=== PATIENT | male | born 1990 | race American Indian/Alaskan Native ===

== ENCOUNTER 2017-02-06 17:19 | Emergency (ER) | payer SELFPAY ==
[2017-02-06 17:25] VITALS: BP 148/95; PULSE 74; RESP 18; TEMP 98.5; O2SAT 99
--- NOTE | 2017-02-06 17:40 | ED PDOC ---
HPI: General Adult Time Seen by Provider: 02/06/17 17:26 Chief Complaint (Nursing): Medical Clearance Past Medical History Vital Signs: Last Vital Signs Temp 98.5 F 02/06/17 17:21 Pulse 74 02/06/17 17:21 Resp 18 02/06/17 17:21 BP 148/95 H 02/06/17 17:21 Pulse Ox 99 02/06/17 17:31 - Home Medications Home Medications: Ambulatory Orders Medication Instructions Recorded Benzoyl Peroxide [Acne Cream] 28 gm TP BID #1 cream..g. 05/02/16 Clindamycin [Cleocin] 300 mg PO TID #21 cap 05/02/16 Ibuprofen [Motrin] 600 mg PO Q6 PRN #15 tab 05/02/16 - Allergies Allergies/Adverse Reactions: Allergies Allergy/AdvReac Type Severity Reaction Status Date / Time No Known Allergies Allergy Verified 02/06/17 17:21 - ECG O2 Sat by Pulse Oximetry: 99 (RA) Pulse Ox Interpretation: Normal Disposition - Clinical Impression Clinical Impression: PCP (phencyclidine) abuse - Patient ED Disposition Is Patient to be Admitted: No Counseled Patient/Family Regarding: Diagnosis, Need For Followup - Disposition Referrals: [facility] [Outside] Disposition: Routine/Home Disposition Time: 17:30 Condition: GOOD Additional Instructions: Please stop using PCP. Pt is medically and psychiatrically stable for incarceration.
== END 2017-02-06 17:33 ==
LOC: H.ER 17:19
DX: F16.10 Hallucinogen abuse, uncomplicated (principal); Z02.89 Encounter for other administrative examinations

== ENCOUNTER 2017-11-07 19:00 | Emergency (ER) | payer SELFPAY ==
[2017-11-07 19:15] VITALS: BP 140/93; PULSE 93; RESP 20; TEMP 98; O2SAT 100
== END 2017-11-07 19:25 | disposition left against medical advice (07) ==
LOC: H.ER 19:00
DX: Z02.89 Encounter for other administrative examinations (principal)

== ENCOUNTER 2017-12-02 14:06 | Emergency (ER) | payer SELFPAY ==
[2017-12-02] MEDS ORDERED: Sodium Chloride 0.9% 1,000 ML IV STA (14:29)
--- NOTE | 2017-12-02 14:40 | ED PDOC ---
HPI: General Adult Time Seen by Provider: 12/02/17 14:22 Chief Complaint (Nursing): Substance Abuse Chief Complaint (Provider): Drug abuse History Per: Patient History/Exam Limitations: clinical condition Onset/Duration Of Symptoms: Days (today) Additional Complaint(s): Pt. found on the ground responding to pain so brought to the ED. Family at bedside and admit to pcp use hx by pt. Pt. with limited response to questions. Past Medical History Reviewed: Historical Data, Nursing Documentation, Vital Signs - Medical History PMH: No Chronic Diseases - Surgical History Surgical History: No Surg Hx - Family History Family History: States: Unknown Family Hx - Living Arrangements Living Arrangements: With Family - Social History Drugs: Methamphetamine - Home Medications Home Medications: Ambulatory Orders Medication Instructions Recorded Benzoyl Peroxide [Acne Cream] 28 gm TP BID #1 cream..g. 05/02/16 Clindamycin [Cleocin] 300 mg PO TID #21 cap 05/02/16 Ibuprofen [Motrin] 600 mg PO Q6 PRN #15 tab 05/02/16 - Allergies Allergies/Adverse Reactions: Allergies Allergy/AdvReac Type Severity Reaction Status Date / Time No Known Allergies Allergy Verified 02/06/17 17:21 Review of Systems Review Of Systems: ROS cannot be obtained secondary to pt's inabilty to answer questions. Physical Exam - Reviewed Nursing Documentation Reviewed: Yes Vital Signs Reviewed: Yes - Physical Exam Appears: Positive for: Non-toxic, No Acute Distress Head Exam: Positive for: ATRAUMATIC, NORMAL INSPECTION, NORMOCEPHALIC Skin: Positive for: Normal Color, Warm, DRY Eye Exam: Positive for: Normal appearance, PERRL ENT: Positive for: Normal ENT Inspection Neck: Positive for: Normal, Painless ROM, Supple Cardiovascular/Chest: Positive for: Regular Rate, Rhythm Respiratory: Positive for: CNT, Normal Breath Sounds Gastrointestinal/Abdominal: Positive for: Normal Exam, Bowel Sounds, Soft. Negative for: Tenderness Back: Positive for: Normal Inspection. Negative for: L CVA Tenderness, R CVA Tenderness Extremity: Positive for: Normal ROM (moving extremities on his own will). Negative for: Tenderness, Pedal Edema Neurologic/Psych: Positive for: Alert, Other (limited as pt. is not response to all commands, but moves around on his own will). Negative for: Oriented - Laboratory Results Result Diagrams: 12/02/17 15:10 12/02/17 15:10 Interpretation Of Abn Labs: pcp pos - Progress ED Course And Treament: 1752: Stable. AAOx3. Tolerated po. Ambulated with no issues. Girlfriend at bedside and will take responsibility. Fu with pcp. Disposition - Clinical Impression Clinical Impression: PCP (phencyclidine) abuse - Patient ED Disposition Is Patient to be Admitted: No Counseled Patient/Family Regarding: Studies Performed, Diagnosis, Need For Followup - Disposition Referrals: [facility] [Outside] - 12/05/17 Disposition: Routine/Home Disposition Time: 17:54 Condition: STABLE Additional Instructions: Return if not better in 3 days. Instructions: Drug Abuse Treatment
[2017-12-02 15:13] LABS: BASO % 0.8 % (0.0-2.0); EOS % 0.4 % (0.0-4.0); HEMOGLOBIN 12.8 g/dL (12.0-18.0); LYMPH # 1.4 K/uL (1.0-4.3); LYMPH % 31.1 % (20.0-40.0); MEAN CELL VOLUME 90.9 fl (80.0-94.0); MEAN CORPUSCULAR HEMOGLOBIN 30.2 pg (27.0-31.0); MEAN CORPUSCULAR HGB CONC 33.2 g/dL (33.0-37.0); MEAN PLATELET VOLUME 8.2 fl (7.2-11.7); MONO # 0.5 K/uL (0.0-0.8); MONO % 11.3 % (0.0-10.0); NEUT # 2.5 K/uL (1.8-7.0); NEUT % 56.4 % (50.0-75.0); NRBC % 0.1 % (0.0-0.0); RBC 4.24 Mil/uL (4.40-5.90); RED CELL DISTRIBUTION WIDTH 13.5 % (11.5-14.5); WHITE BLOOD COUNT 4.4 K/uL (4.8-10.8)
[2017-12-02 15:30] LABS: ALB/GLOB RATIO 1.2 (1.0-2.1); ALBUMIN 4.5 g/dL (3.5-5.0); ALT/SGPT 38 U/L (21-72); AST/SGOT 35 U/L (17-59); BLOOD UREA NITROGEN 17 mg/dl (9-20); CALCIUM 9.5 mg/dL (8.4-10.2); GFR AFRICAN-AMERICAN > 60; GFR NON-AFRICAN AMERICAN > 60
[2017-12-02 17:09] LABS: BARBITURATES, UR NEGATIVE (NEGATIVE); BENZODIAZEPINES, UR NEGATIVE (NEGATIVE); OPIATES, UR NEGATIVE (NEGATIVE); PHENCYCLIDINE, UR POSITIVE (NEGATIVE)
[2017-12-02 18:05] VITALS: BP 128/78; PULSE 77; RESP 18; TEMP 98; O2SAT 99
== END 2017-12-02 19:14 | disposition home or self-care (01) ==
LOC: H.ER 14:06
DX: F16.10 Hallucinogen abuse, uncomplicated (principal)
CPT/HCPCS: 80053; 85025; 99283; G0480; J7040

== ENCOUNTER 2018-06-27 17:15 | Emergency (ER) | payer SELFPAY ==
[2018-06-27 17:20] VITALS: TEMP 98
--- NOTE | 2018-06-27 18:17 | ED PDOC ---
HPI: Psych/Substance Abuse Time Seen by Provider: 06/27/18 17:25 Chief Complaint (Nursing): Substance Abuse Chief Complaint (Provider): Substance Abuse ED Caveat: Intoxicated History/Exam Limitations: intoxication Onset/Duration Of Symptoms: Hrs ([facility]) Current Symptoms Are (Timing): Still Present Modifying Factor(s): Other (unknown illegal substance) Additional Complaint(s): 28 year old male with a history of PCP abuse presents to the ED via BLS for possible substance abuse. Patient was not answering questions initially. As per pts medical records, pt has history of PCP abuse. Once in the ED, he was initially placed on 1:1, he tried to elope around 18:10 and he was belligerent toward staff. He was given sedation to relieve agitation and placed in restraints at that time.. History is limited due to patient's clinical state. Past Medical History Reviewed: Nursing Documentation, Vital Signs, Unable To Obtain (historical data) Vital Signs: Last Vital Signs Temp 98.0 F 06/27/18 17:16 Pulse 69 06/27/18 17:16 Resp 16 06/27/18 17:16 BP 139/91 H 06/27/18 17:16 Pulse Ox 99 06/27/18 17:16 - Family History Family History: States: Unknown Family Hx - Social History Drugs: Other (PCP) - Home Medications Home Medications: Ambulatory Orders Medication Instructions Recorded Ibuprofen [Motrin] 600 mg PO Q6 PRN #15 tab 05/02/16 RX: Benzoyl Peroxide [Acne Cream] 28 gm TP BID #1 cream..g. 05/02/16 RX: Clindamycin [Cleocin] 300 mg PO TID #21 cap 05/02/16 - Allergies Allergies/Adverse Reactions: Allergies Allergy/AdvReac Type Severity Reaction Status Date / Time No Known Allergies Allergy Verified 06/27/18 17:16 Review of Systems ROS Statement: Except As Marked, All Systems Reviewed And Found Negative Physical Exam - Reviewed Nursing Documentation Reviewed: Yes Vital Signs Reviewed: Yes - Physical Exam Appears: Positive for: Non-toxic, No Acute Distress Head Exam: Positive for: ATRAUMATIC, NORMOCEPHALIC Skin: Positive for: Normal Color, Warm, Dry Eye Exam: Positive for: EOMI, Normal appearance, PERRL Neck: Positive for: Normal, Painless ROM Cardiovascular/Chest: Positive for: Regular Rate, Rhythm. Negative for: Murmur Respiratory: Positive for: Normal Breath Sounds. Negative for: Respiratory Distress Gastrointestinal/Abdominal: Positive for: Normal Exam, Soft. Negative for: Tenderness Back: Positive for: Normal Inspection Extremity: Positive for: Normal ROM. Negative for: Pedal Edema, Deformity Neurologic/Psych: Positive for: Alert (unable to do a full neurological exam due to clinical state. Pt initially was awake and alert, but after given sedation, was somnolent. ). Negative for: Motor/Sensory Deficits - Laboratory Results Result Diagrams: 06/27/18 18:59 06/27/18 18:59 - ECG O2 Sat by Pulse Oximetry: 99 (RA) Pulse Ox Interpretation: Normal Medical Decision Making Medical Decision Making: Time: 1899 --Patient signed out to Dr. Wall by this provider, pending medical clearance and crisis evaluation. Scribe Attestation: Documented by Sherice Andrews, acting as a scribe for Martine Farrell MD Provider Scribe Attestation: All medical record entries made by the Scribe were at my direction and personally dictated by me. I have reviewed the chart and agree that the record accurately reflects my personal performance of the history, physical exam, medical decision making, and the department course for this patient. I have also personally directed, reviewed, and agree with the discharge instructions and disposition. Disposition - Clinical Impression Clinical Impression: PCP (phencyclidine) abuse - Patient ED Disposition Is Patient to be Admitted: Transfer of Care - Disposition Referrals: [facility] [Outside] Disposition: Transfer of Care Disposition Time: 19:00 Condition: STABLE Instructions: Drug Abuse and Drug Addiction (DC) Forms: [employer] (Icelandic) Patient Signed Over To: Minh Wall
[2018-06-27 19:04] LABS: BASO % 0.5 % (0.0-2.0); EOS % 0.6 % (0.0-4.0); HEMOGLOBIN 12.6 g/dL (12.0-18.0); LYMPH # 1.5 K/uL (1.0-4.3); LYMPH % 23.9 % (20.0-40.0); MEAN CELL VOLUME 91.1 fl (80.0-94.0); MEAN CORPUSCULAR HEMOGLOBIN 30.7 pg (27.0-31.0); MEAN CORPUSCULAR HGB CONC 33.7 g/dL (33.0-37.0); MEAN PLATELET VOLUME 8.7 fl (7.2-11.7); MONO # 0.4 K/uL (0.0-0.8); MONO % 6.7 % (0.0-10.0); NEUT # 4.3 K/uL (1.8-7.0); NEUT % 68.3 % (50.0-75.0); NRBC % 0.1 % (0.0-0.0); RBC 4.12 Mil/uL (4.40-5.90); RED CELL DISTRIBUTION WIDTH 13.8 % (11.5-14.5); WHITE BLOOD COUNT 6.3 K/uL (4.8-10.8)
[2018-06-27 19:14] LABS: ACETAMINOPHEN < 10.0 ug/ml (10.0-30.0); ALB/GLOB RATIO 1.2 (1.0-2.1); ALBUMIN 4.6 g/dL (3.5-5.0); ALT/SGPT 50 U/L (21-72); AST/SGOT 43 U/L (17-59); BILIRUBIN,DIRECT 0.1 mg/ml (0.0-0.4); BLOOD UREA NITROGEN 16 mg/dl (9-20); GFR NON-AFRICAN AMERICAN > 60; SALICYLATE < 1.0 mg/dl
--- NOTE | 2018-06-27 19:46 | ED PDOC ---
- Laboratory Results Result Diagrams: 06/27/18 18:59 06/27/18 18:59 - ECG O2 Sat by Pulse Oximetry: 99 (RA) Medical Decision Making Medical Decision Making: Time: 19:00 --Patient care endorsed from Dr. Farrell to Dr. Wall pending clinical sobriety and crisis evaluation. Time: [address] Hernandez and diagnosed with PCP abuse. Awake, alert, eatin g meal tray, calm, cooperative. Scribe Attestation: Documented by Darius Land acting as a scribe for Minh Wall MD Provider Scribe Attestation: All medical record entries made by the Scribe were at my direction and personally dictated by me. I have reviewed the chart and agree that the record accurately reflects my personal performance of the history, physical exam, medical decision making, and the department course for this patient. I have also personally directed, reviewed, and agree with the discharge instructions and disposition. Disposition - Clinical Impression Clinical Impression: PCP (phencyclidine) abuse - POA Present On Arrival: None - Disposition Referrals: [facility] [Outside] Disposition: Routine/Home Disposition Time: 02:34 Condition: STABLE Instructions: Drug Abuse and Drug Addiction (DC) Forms: [employer] (Greek)
[2018-06-27 21:13] LABS: BARBITURATES, UR NEGATIVE (NEGATIVE); BENZODIAZEPINES, UR NEGATIVE (NEGATIVE); OPIATES, UR NEGATIVE (NEGATIVE); PHENCYCLIDINE, UR POSITIVE (NEGATIVE)
[2018-06-28 02:55] VITALS: BP 90/55; PULSE 77; RESP 15
[2018-06-28 05:22] VITALS: O2SAT 99
== END 2018-06-28 02:52 | disposition home or self-care (01) ==
LOC: H.ER 17:15
DX: F16.10 Hallucinogen abuse, uncomplicated (principal)
CPT/HCPCS: 80048; 80076; 85025; 96372; 99285; G0480; J1630; J2060